=== PATIENT | female | born 1985 | race African-American/Black ===

== ENCOUNTER 2020-05-09 11:13 | Emergency (ER) | payer MEDICAID, OTHER ==
[~2020-05-09] VITALS: Ht 172.7 cm; Wt 91.6 kg
[~2020-05-09 11:13] MED LIST: ALPR0.25 PO; BUSP5TAB PO; DIPH1TAB PO; METR500T PO; OMEP20CA15 PO; PROM25TA15 PO; TEMA15CA5 PO
--- NOTE | 2020-05-09 11:59 | NUR ---
Patient discharged to home in stable condition. Written and verbal after care instructions given. Patient verbalizes understanding of instructions. Stressed follow up or return to ER for worsening s/s.
== END 2020-05-09 12:01 | disposition home or self-care (01) ==
LOC: ER 11:13
DX: J45.909 Unspecified asthma, uncomplicated (principal); R05 Cough; Z20.828 Contact with and (suspected) exposure to other viral communicable diseases; Z87.11 Personal history of peptic ulcer disease; Z79.899 Other long term (current) drug therapy
CPT/HCPCS: 99283; U0003; A4663

== ENCOUNTER 2021-01-03 10:41 | Emergency (ER) | payer OTHER ==
[~2021-01-03] VITALS: Ht 172.7 cm; Wt 92.1 kg
[2021-01-03] MEDS ORDERED: IBUP-1955 PO (11:31)
--- NOTE | 2021-01-03 11:48 | NUR ---
Patient discharged to home in stable condition with brisk steady gait. Written and verbal after care instructions given to patient. Patient verbalized understanding & compliance of instructions. Stressed follow up with primary doctor or return to ER for worsening s/s.
== END 2021-01-03 11:49 | disposition home or self-care (01) ==
LOC: ER 10:41
DX: J02.9 Acute pharyngitis, unspecified (principal); R50.9 Fever, unspecified; J45.909 Unspecified asthma, uncomplicated; Z20.822 Contact with and (suspected) exposure to COVID-19
CPT/HCPCS: 99283; U0003; A4663

== ENCOUNTER 2021-08-23 20:17 | Emergency (ER) | payer OTHER ==
[~2021-08-23] VITALS: Ht 170.2 cm; Wt 72.6 kg
[~2021-08-23 20:17] MED LIST changes: -ALPR0.25 PO; -BUSP5TAB PO; -DIPH1TAB PO; +IBUP-1955 PO; -METR500T PO; -OMEP20CA15 PO; -PROM25TA15 PO; -TEMA15CA5 PO
--- NOTE | 2021-08-23 20:27 | NUR ---
pt ambulated to room 2a, pt c/o foot pain.
--- NOTE | 2021-08-23 20:31 | NUR ---
Dr. Moyer at bedside for MSE.
--- NOTE | 2021-08-23 21:03 | NUR ---
radiology completed foot xray.
[2021-08-23] MEDS ORDERED: IBUP-1957 PO (22:21)
[2021-08-23 22:25] VITALS: BP 107/79
--- NOTE | 2021-08-23 22:25 | NUR ---
Patient discharged to home in stable condition. Written and verbal after care instructions given. Patient verbalizes understanding of instructions. Stressed follow up or return to ER for worsening s/s. pt ambulated with steady gait, denies pain.
== END 2021-08-23 22:25 | disposition home or self-care (01) ==
LOC: ER 20:21
DX: M79.671 Pain in right foot (principal); J45.909 Unspecified asthma, uncomplicated; Z79.1 Long term (current) use of non-steroidal anti-inflammatories (NSAID)
CPT/HCPCS: 73630; A4663